=== PATIENT | male | born 1960 | race Caucasian/White ===

== ENCOUNTER 2016-11-18 15:03 | Emergency (ER) | payer OTHER ==
[~2016-11-18] VITALS: Ht 177.8 cm; Wt 100.7 kg
[2016-11-18 15:07] VITALS: BP 157/88
--- NOTE | 2016-11-18 15:45 | ED EYE COMPLAINT ---
History of Present Illness General Chief Complaint: Eye Problems Stated Complaint: WOOD IN L EYE Source: patient, old records Exam Limitations: no limitations Vital Signs & Intake/Output Vital Signs & Intake/Output Vital Signs Date Time Temp Pulse Resp B/P Pulse O2 O2 Flow FiO2 Ox Delivery Rate 11/18 1507 98.7 85 20 157/88 96 Room Air Allergies Coded Allergies: No Known Allergies (11/18/16) Reconcile Medications Ketorolac Tromethamine (Acular) 0.5 % DROPS 1 GTT OPH 4 TIMES/DAY PRN pain Polytrim (Polytrim Eye Drops) 10,000 UNIT-1 MG/ML DROPS 1 GTT OPH Q6 corneal abrasion Triage Note: PT TO ED C/O LEFT EYE PAIN SINCE YESTERDAY. STATES HE THINKS HE HAS WOOD IN HIS EYE. LEFT EYE RED AND TEARING. Triage Nurses Notes Reviewed? yes Onset: Abrupt Duration: day(s): (2), constant Timing: recent history Injury Environment: home Severity: moderate Severity Numbers: 6 No Modifying Factors: none Left Eye Associated Symptoms: burning, pain Right Eye Associated Symptoms: denies HPI: 55-year-old male presents to emergency room complaining of foreign body sensation to the left eye since yesterday. The patient is a reddy by trade, and He believes there is a piece of wood and it. Denies wearing glasses or contacts he denies any vision changes however reports to buy a watery itchy painful left eye. There is no other injury denies any facial swelling or redness no fever no chills. No modifying factors or associated symptoms otherwise. Past History Travel History Traveled to [place] past 21 day No Medical History Any Pertinent Medical History? none Neurological: NONE EENT: NONE Cardiovascular: NONE Respiratory: NONE Gastrointestinal: NONE Hepatic: NONE Renal: NONE Musculoskeletal: NONE Psychiatric: NONE Endocrine: NONE Blood Disorders: NONE Cancer(s): NONE DIRECTOR OF ENROLLMENT/Reproductive: NONE Tetanus Vaccine: Surgical History Surgical History: none Psychosocial History What is your primary language Algerian Tobacco Use: Never used ETOH Use: denies use Illicit Drug Use: denies illicit drug use Family History Hx Contributory? No Review of Systems Review of Systems Constitutional: Reports: see HPI. All Other Systems: Reviewed and Negative Physical Exam General Appearance: well developed/nourished General Inspection: normal inspection Eyelid: normal inspection, everted for exam Conjunctiva/Sclera: injected Cornea: examined w/fluorescein, abrasion EOM: intact Pupil: normal accommodation, normal pupil, PERRL General Inspection: normal inspection Eyelid: normal inspection Conjunctiva/Sclera: normal inspection Cornea: normal inspection EOM: intact Pupil: normal accommodation, normal pupil, PERRL Physical Exam Head: atraumatic Comments: Well-developed well-nourished patient in no apparent distress. HEENT: Atraumatic, extraocular motion intact Neck: Supple, FROm Back: FROM Cardiovascular: Regular rate and rhythms no murmurs rubs or gallops, Respiratory: No respiratory distress. Patient speaking in full complete sentences. Breath sounds clear to auscultation bilaterally: NO W/R/R Extremities: full range of motion Neuro: Alert and oriented x3 Skin: Warm & dry;No appreciable rash on exposed skin Psych: Mood affect normal, normal memory normal judgment. Progress Differential Diagnosis: corneal abrasion, corneal foreign body, conjunctivitis, detached retina, glaucoma Plan of Care: after verbal consent obtained, the eye was anestheized with tetracaine drops, the eyelids were everted with q-tip with no visualized fb, q-tips were run underneath the upper and lower lid, there was evidecnce of a corneal abrasion at approximately 10o clock in ther same region where the pt complaied of of the pain, the eye was fluoroscein stained no visualized fb noted. I discussed the patient at length the possibility of a foreign body not seen on examination still exist advised him to follow up with ophthalmology Dr. holden return to emergency room at anytime sooner if symptoms worsen or he has any other concerns. Departure Departure Time of Disposition: 1556 Disposition: HOME OR SELF CARE Condition: Stable Clinical Impression Primary Impression: Corneal abrasion Referrals: COURTNEY CEJA,SHELTON Kline (PCP/Family) ELENI CEJA,GABE Hager Additional Instructions: Acular eyedrops as directed. Polytrim for wound prophylaxis. Cool compresses ice packs as needed. These prescriptions were sent to your pharmacy as discussed the possibility of foreign body not seen on examination still exist follow-up with state historical society director Dr. holden on monday or return at anytime sooner with any concerns Departure Forms: Customer Survey General Discharge Information Prescriptions: Current Visit Scripts Ketorolac Tromethamine (Acular) 1 GTT OPH 4 TIMES/DAY PRN pain #5 ML Polytrim (Polytrim Eye Drops) 1 GTT OPH Q6 #10 ML
[2016-11-18] MEDS ORDERED: POLYTRIM EYE DR10 ML OPH (15:58)
[2016-11-18] MEDS ORDERED: ACULAR5 ML OPH (15:58)
== END 2016-11-18 16:05 ==
LOC: ERH 15:03
DX: S05.02XA Injury of conjunctiva and corneal abrasion without foreign body, left eye, initial encounter (principal); X58.XXXA Exposure to other specified factors, initial encounter